=== PATIENT | female | born 1960 | race Caucasian/White ===

== ENCOUNTER → 2019-02-06 | Outpatient (CLI) | payer MEDICARE ==
--- NOTE | 2019-02-07 10:48 | RADIOLOGY IMAGING REPORT ---
FACILITY: [facility] PATIENT NAME: TERRI MILLER : [id number] MR: [id number] V: [id number] EXAM DATE: [id number] ORDERING PHYSICIAN: KARLA DE LA CRUZ TECHNOLOGIST: Kecia Hermosillo PROCEDURE:BILATERAL DIGITAL SCREENING MAMMOGRAM WITH CAD ASSISTED INTERPRETATION & 3D TOMOSYNTHESIS COMPARISON:None. INDICATIONS:SCREENING FINDINGS: There are scattered areas of fibroglandular density throughout the breasts. There is a small asymmetry in the lateral portion of the Left breast in the middle 1/3 on the Left CC view for which Spot compression view is recommended. DIAGNOSTIC CATEGORY 0--INCOMPLETE: NEED ADDITIONAL IMAGING EVALUATION. RECOMMENDATIONS: ADDITIONAL MAMMOGRAPHIC VIEWS REQUIRED: LEFT BREAST. IMPRESSION: BIRADS 0: Incomplete. Additional views of the Left breast recommended as described. Dictated by: Nohemi Bird M.D. on 02/07/2019 at 8:27 Transcribed by: NIRAJ on 02/07/2019 at 8:43 Approved by: Nohemi Bird M.D. on 02/07/2019 at 10:46 [facility]
== END ==
LOC: MAMO 14:03
PROVIDERS: ATTEND Obstetrics & Gynecology
DX: Z12.31 Encounter for screening mammogram for malignant neoplasm of breast (principal); R92.8 Other abnormal and inconclusive findings on diagnostic imaging of breast
CPT/HCPCS: 77063; 77067

== ENCOUNTER → 2019-03-01 | Outpatient (CLI) | payer MEDICARE ==
--- NOTE | 2019-03-02 08:43 | RADIOLOGY IMAGING REPORT ---
[place] [facility] [place] NAME: TERRI MILLER : [id number] MR: [id number] V: [id number] EXAM DATE: ORDERING PHYSICIAN: KARLA DE LA CRUZ TECHNOLOGIST: Nathalie Chan PROCEDURE:LEFT DIGITAL DIAGNOSTIC MAMMOGRAM WITH CAD ASSISTED INTERPRETATION & 3D TOMOSYNTHESIS COMPARISON:Prior mammograms dated 02/06/19 INDICATIONS:FURTHER EVAL FINDINGS: Patient returns for spot compression view in the Left CC projection, a mediolateral full field view of the Left breast & a rolled Left CC view. The small focal asymmetry in the lateral portion of the Left breast middle third appeared compressible & dissipated on the rolled view & mediolateral view. This apparently represented a summation shadow. DIAGNOSTIC CATEGORY 1--NEGATIVE. RECOMMENDATIONS: ROUTINE MAMMOGRAM AND CLINICAL EVALUATION. IMPRESSION: BIRADS 1: Negative. No significant abnormality of the Left breast is seen. Dictated by: Nohemi Bird M.D. on 03/01/2019 at 15:59 Transcribed by: LAURA on 03/02/2019 at 8:16 Approved by: Nohemi Bird M.D. on 03/02/2019 at 8:42 [facility]
== END ==
LOC: MAMO 00:23
PROVIDERS: ATTEND Obstetrics & Gynecology
DX: R92.8 Other abnormal and inconclusive findings on diagnostic imaging of breast (principal)
CPT/HCPCS: 77061; 77065